=== PATIENT | female | born 1980 | race Caucasian/White ===

== ENCOUNTER 2020-01-12 11:24 | Emergency (ER) | payer SELFPAY ==
[2020-01-12] MEDS ORDERED: FAMOTIDINE 20 MG/2 ML VIAL IV ONE (11:58)
[2020-01-12] MEDS ORDERED: MORPHINE 4 MG/ML SYR ONE ×2 (11:58→14:06)
[2020-01-12] MEDS ORDERED: LIDOCAINE VISCOUS 2% SOLN 15 ML UDC ONE (11:58)
[2020-01-12] MEDS ORDERED: ONDANSETRON 4 MG/2 ML VIAL ONE (11:58)
[2020-01-12] MEDS ORDERED: MAGNE/ALUM HYDROXD 30 ML UCUP ONE (11:58)
[2020-01-12 12:03] LABS: Absolute Lymphocytes (CBC) 1.5 K/uL (0.7-4.9); Basophils % 0.4 % (0-1.3); Hematocrit 40.4 % (36.0-45.0); Lymphocytes % 18.5 % (15.3-44.8); MPV 10.1 fL (7.6-11.3); RBC Red Blood Cell Count 4.35 M/uL (3.86-4.86)
[2020-01-12 12:16] LABS: ALT/SGPT 13 U/L (12-78); AST/SGOT 8 U/L (15-37); Albumin 3.4 g/dL (3.4-5.0); Alkaline Phosphatase 84 U/L (45-117); BUN Blood Urea Nitrogen 12 mg/dL (7-18); Bicarbonate 21 mmol/L (21-32); Bilirubin Direct 0.1 mg/dL (0-0.2); Bilirubin Total 0.4 mg/dL (0.2-1.0); Glucose Level 90 mg/dL (74-106); Lipase 93 U/L (73-393); Potassium 3.8 mmol/L (3.5-5.1); Protein, Total 7.1 g/dL (6.4-8.2); Sodium Level 140 mmol/L (136-145)
--- NOTE | 2020-01-12 14:09 | RAD REPORT ---
EXAM DESCRIPTION: CTAbdomen Pelvis W Contrast - 01/12/2020 1:47 pm CLINICAL HISTORY: Abdominal pain. upper abd pain, vomiting, hx of gastric bypass 8 years ago COMPARISON: No comparisons TECHNIQUE: Biphasic CT imaging of the abdomen and pelvis was performed with 100 ml non-ionic IV cont rast. All CT scans are performed using dose optimization technique as appropriate and may include automated exposure control or mA/KV adjustment according to patient size. FINDINGS: The lung bases are clear.Postsurgical changes are noted about the stomach of a gastric byp ass procedure. The bypassed portion of the stomach shows mild mucosal enhancement and is mildly diste nded with fluid. The liver, spleen, pancreas, adrenal glands and kidneys are within normal limits. Cholecystectomy cli ps. No bowel obstruction, free air, free fluid or abscess. The appendix is normal. No evidence of signi ficant lymphadenopathy. No suspicious bony findings. IMPRESSION: Gastric bypass changes are noted. The bypassed portion of the stomach shows mucosal enha ncement suggesting gastritis or other form of inflammation.
--- NOTE | 2020-01-12 14:29 | EDPHYS ---
Physician Documentation [facility] Name: Chantell Phillips Age: 39 yrs Sex: Female : 1980 Arrival Date: 01/12/2020 Time: 11:28 Bed 17 Private MD: ED Physician Anshu San HPI: 01/11 11:44 This 39 yrs old Female presents to ER via Unassigned with complaints of rn Abdominal Pain. 11:44 The patient presents with abdominal pain in the epigastric area. Onset: The rn symptoms/episode began/occurred yesterday. The symptoms do not radiate. Associated signs and symptoms: Pertinent positives: nausea and vomiting, Pertinent negatives: blood in stools, fever, shortness of breath, vomiting blood. Modifying factors: The symptoms are alleviated by nothing, the symptoms are aggravated by touching the area. Severity of pain: At its worst the pain was moderate in the emergency department the pain is unchanged. The patient has not experienced similar symptoms in the past. Reports 2 days of upper abd pain, assoc with nausea and vomiting, gastric bypass 8 years ago, no fever, no trauma, no blood in stool or dark stool. No chest pain. . 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 - Family history:: not pertinent. - Social history:: Smoking status: Patient denies any tobacco usage or history of. - Hospitalizations: : No recent hospitalization is reported. ROS: 11:44 Constitutional: Negative for fever, chills, and weight loss, Eyes: Negative for injury, rn pain, redness, and discharge, Neck: Negative for injury, pain, and swelling, Cardiovascular: Negative for chest pain, palpitations, and edema, Respiratory: Negative for shortness of breath, cough, wheezing, and pleuritic chest pain, Abdomen/GI: + abd pain/nausea/vomiting Back: Negative for injury and pain, MS/Extremity: Negative for injury and deformity, Skin: Negative for injury, rash, and discoloration, Neuro: Negative for headache, weakness, numbness, tingling, and seizure. Exam: 11:44 Constitutional: This is a well developed, well nourished patient who is awake, alert, rn holding upper abdomen Head/Face: Normocephalic, atraumatic. Cardiovascular: Regular rate and rhythm. No pulse deficits. Respiratory: No increased work of breathing, no retractions or nasal flaring. Abdomen/GI: soft, + epigastric tenderness, no rebound, no masses Skin: Warm, dry MS/ Extremity: Pulses equal, no cyanosis. Neurovascular intact. Full, normal range of motion. Equal circumference. Neuro: Awake and alert, GCS 15 Vital Signs: 11:45 BP 118 / 74; Pulse 78; Resp 18; Temp 99.2(O); Pulse Ox 99% on R/A; Height 5 ft. 7 in. sv (170.18 cm); Pain 7/10; 12:27 BP 138 / 77; Pulse 58; Resp 16 S; Pulse Ox 99% on R/A; ca1 13:30 BP 128 / 64; Pulse 64; Resp 15 S; Pulse Ox 100% on R/A; ca1 14:29 BP 142 / 72; Pulse 60; Resp 15 S; Pulse Ox 100% on R/A; ca1 MDM: 11:32 Patient medically screened. rn 14:27 Differential diagnosis: gastritis, non-specific abd pain, pancreatitis, bowel rn obstruction. Data reviewed: vital signs, nurses notes, lab test result(s), radiologic studies, CT scan, and as a result, I will discharge patient. Counseling: I had a detailed discussion with the patient and/or guardian regarding: the historical points, exam findings, and any diagnostic results supporting the discharge/admit diagnosis, lab results, radiology results, the need for outpatient follow up, to return to the emergency department if symptoms worsen or persist or if there are any questions or concerns that arise at home. Response to treatment: the patient's symptoms have mildly improved after treatment, and as a result, I will discharge patient. Special discussion: Based on the patient's Hx, exam, and Dx evaluation, there is no indication for emergent surgery or inpatient Tx. It is understood by the patient/guardian that if the Sx's persist or worsen they need to return immediately for re-evaluation. I discussed with the patient/guardian in detail that at this point there is no indication for admission to the hospital. It is understood, however, that if the symptoms persist or worsen the patient needs to return immediately for re-evaluation. ED course: CT shows gastritis, normal h/h, normal vitals, patient using phone, seems more comfortable, will dc home with GI f/u and antacids. . 01/11 11:43 Order name: Basic Metabolic Panel; Complete Time: 12:39 rn 01/11 11:43 Order name: CBC with Diff; Complete Time: 12:39 rn 01/11 11:43 Order name: Hepatic Function; Complete Time: 12:39 rn 01/11 11:43 Order name: Lipase; Complete Time: 12:39 rn 01/11 11:43 Order name: CT Abd/Pelvis - PO and IV Contrast; Complete Time: 14:24 rn 01/11 11:43 Order name: IV Saline Lock; Complete Time: 11:54 rn 01/11 11:43 Order name: Labs collected and sent; Complete Time: 11:54 rn Administered Medications: 11:52 Drug: Zofran (Ondansetron) 4 mg Route: IVP; Site: right antecubital; tw2 13:00 Follow up: Response: No adverse reaction; Nausea is decreased ca1 11:54 Drug: morphine 4 mg {Note: RASS 0.} Route: IVP; Site: right antecubital; tw2 13:00 Follow up: Response: No adverse reaction; Pain is decreased; RASS: Alert and Calm (0) ca1 11:58 Drug: GI Cocktail without - (Maalox Suspension 30 ml, Lidocaine Liquid 2 % 15 tw2 ml) Route: PO; 13:00 Follow up: Response: No adverse reaction; Pain is decreased ca1 11:58 Drug: Pepcid 20 mg Route: IVP; Site: right antecubital; tw2 13:00 Follow up: Response: No adverse reaction; Pain is decreased ca1 13:57 Drug: morphine 4 mg {Note: rass 0 .} Route: IVP; Site: right antecubital; ca1 14:40 Follow up: Response: No adverse reaction; Pain is decreased; RASS: Alert and Calm (0) ca1 Disposition: 01/12/20 14:29 Discharged to Home. Impression: Gastritis, unspecified, without bleeding. - Condition is Stable. - Discharge Instructions: Gastritis, Adult. - Prescriptions for Zofran ODT 4 mg Oral tablet,disintegrating - place 1 tablet by TRANSLINGUAL route every 8 hours As needed; 20 tablet. Protonix 40 mg Oral Tablet - take 1 tablet by ORAL route once daily; 30 tablet. Tylenol- Codeine #3 300-30 mg Oral Tablet - take 1 tablet by ORAL route every 6 hours As needed; 15 tablet. - Medication Reconciliation Form, Thank You Letter, Antibiotic Education, Prescription Opioid Use form. - Follow up: Hugo Ramirez MD; When: As needed; Reason: Recheck today's complaints, Re-evaluation by your physician. - Problem is new. - Symptoms have improved. Signatures: Dispatcher [employer] EDMS Martha Montanez RN RN sv Anshu San MD MD rn Wise, Tara, RN RN tw2 Sonia Wong RN RN ca1 Corrections: (The following items were deleted from the chart) 14:48 14:29 01/12/2020 14:29 Discharged to Home. Impression: Gastritis, unspecified, without ca1 bleeding. Condition is Stable. Forms are Medication Reconciliation Form, Thank You Letter, Antibiotic Education, Prescription Opioid Use. Follow up: Hugo Ramirez; When: As needed; Reason: Recheck today's complaints, Re-evaluation by your physician. Problem is new. Symptoms have improved. rn
--- NOTE | 2020-01-12 14:29 | ER ---
Nurse's Notes [facility] Name: Chantell Phillips Age: 39 yrs Sex: Female : 1980 Arrival Date: 01/12/2020 Time: 11:28 Bed 17 Private MD: Diagnosis: Gastritis, unspecified, without bleeding Presentation: 01/11 11:45 Chief complaint: Patient states: epigastric pain and nausea x 2 days. Has been taking sv Tylenol 2 tabs Q4h since last night. Coronavirus screen: Client denies travel out of the [place] in the last 14 days. At this time, the client does not indicate any symptoms associated with coronavirus-19. Ebola Screen: No symptoms or risks identified at this time. Initial Sepsis Screen: Does the patient meet any 2 criteria? No. Patient's initial sepsis screen is negative. Does the patient have a suspected source of infection? No. Patient's initial sepsis screen is negative. Risk Assessment: Do you want to hurt yourself or someone else? Patient reports no desire to harm self or others. Onset of symptoms was January 10, 2020. 11:45 Method Of Arrival: Ambulatory sv 11:45 Acuity: BRENDA 3 sv Triage Assessment: 11:45 General: Appears in no apparent distress. uncomfortable, well developed, Behavior is sv calm, cooperative, appropriate for age. Pain: Complains of pain in epigastric area Pain currently is 7 out of 10 on a pain scale. Pain began 1 day ago. Is intermittent, Noted to be grimacing, with abd palpation. Neuro: Level of Consciousness is awake, alert, obeys commands, Oriented to person, place, time, situation, Moves all extremities. Full function Gait is steady, Speech is normal. Respiratory: Airway is patent Respiratory effort is even, unlabored, Respiratory pattern is regular, symmetrical. GI: Reports epigastric pain, nausea, Patient currently denies vomiting. Derm: Skin is pink, warm \T\ dry. Musculoskeletal: Range of motion: intact in all extremities. 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 - Family history:: not pertinent. - Social history:: Smoking status: Patient denies any tobacco usage or history of. - Hospitalizations: : No recent hospitalization is reported. Screenin:47 Abuse screen: Denies threats or abuse. Denies injuries from another. Abuse screen: sv Denies threats or abuse. Nutritional screening: No deficits noted. Tuberculosis screening: No symptoms or risk factors identified. Fall Risk None identified. Assessment: 12:27 Reassessment: Patient appears in no apparent distress at this time. Patient and/or ca1 family updated on plan of care and expected duration. Pain level reassessed. Patient is alert, oriented x 3, equal unlabored respirations, skin warm/dry/pink. 12:28 GI: ca1 12:53 Reassessment: PO contrast completed. 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 ca1 13:30 Reassessment: Patient appears in no apparent distress at this time. Patient and/or ca1 family updated on plan of care and expected duration. Pain level reassessed. Patient is alert, oriented x 3, equal unlabored respirations, skin warm/dry/pink. 14:29 Reassessment: Patient appears in no apparent distress at this time. Patient and/or ca1 family updated on plan of care and expected duration. Pain level reassessed. Patient is alert, oriented x 3, equal unlabored respirations, skin warm/dry/pink. Vital Signs: 11:45 BP 118 / 74; Pulse 78; Resp 18; Temp 99.2(O); Pulse Ox 99% on R/A; Height 5 ft. 7 in. sv (170.18 cm); Pain 7/10; 12:27 BP 138 / 77; Pulse 58; Resp 16 S; Pulse Ox 99% on R/A; ca1 13:30 BP 128 / 64; Pulse 64; Resp 15 S; Pulse Ox 100% on R/A; ca1 14:29 BP 142 / 72; Pulse 60; Resp 15 S; Pulse Ox 100% on R/A; ca1 ED Course: 11:28 Patient arrived in ED. ds1 11:32 Anshu San MD is Attending Physician. rn 11:45 Martha Montanez RN is Primary Nurse. sv 11:46 Triage completed. sv 11:47 Arm band placed on. sv 11:47 Patient has correct armband on for positive identification. Bed in low position. Call sv light in reach. Pulse ox on. NIBP on. 11:51 Initial lab(s) drawn, by me, sent to lab. Inserted saline lock: 20 gauge in right dh3 antecubital area, using aseptic technique. Blood collected. 12:[address] Scan. sv 13:48 CT Abd/Pelvis - PO and IV Contrast In Process Unspecified. EDMS 14:28 Sonia Wong, RN is Primary Nurse. ca1 14:29 Hugo Ramirez MD is Referral Physician. rn 14:47 No provider procedures requiring assistance completed. IV discontinued, intact, ca1 bleeding controlled, No redness/swelling at site. Pressure dressing applied. Administered Medications: 11:52 Drug: Zofran (Ondansetron) 4 mg Route: IVP; Site: right antecubital; tw2 13:00 Follow up: Response: No adverse reaction; Nausea is decreased ca1 11:54 Drug: morphine 4 mg {Note: RASS 0.} Route: IVP; Site: right antecubital; tw2 13:00 Follow up: Response: No adverse reaction; Pain is decreased; RASS: Alert and Calm (0) ca1 11:58 Drug: GI Cocktail without - (Maalox Suspension 30 ml, Lidocaine Liquid 2 % 15 tw2 ml) Route: PO; 13:00 Follow up: Response: No adverse reaction; Pain is decreased ca1 11:58 Drug: Pepcid 20 mg Route: IVP; Site: right antecubital; tw2 13:00 Follow up: Response: No adverse reaction; Pain is decreased ca1 13:57 Drug: morphine 4 mg {Note: rass 0 .} Route: IVP; Site: right antecubital; ca1 14:40 Follow up: Response: No adverse reaction; Pain is decreased; RASS: Alert and Calm (0) ca1 Outcome: 14:29 Discharge ordered by . rn 14:47 Discharged to home ambulatory. ca1 14:47 Condition: stable 14:47 Discharge instructions given to patient, Instructed on discharge instructions, follow up and referral plans. medication usage, Demonstrated understanding of instructions, follow-up care, medications, Prescriptions given X 3. 14:48 Patient left the ED. ca1 Signatures: Dispatcher [employer] EDMA Martha Montanez RN RN Yanique Hawk ds1 Anshu San MD MD rn Wise, Tara, RN RN tw2 Tanisha Guadarrama 3 Sonia Wong RN RN ca1 Corrections: (The following items were deleted from the chart) 13:58 13:58 Reassessment: Patient appears in no apparent distress at this time. Patient ca1 and/or family updated on plan of care and expected duration. Pain level reassessed. Patient is alert, oriented x 3, equal unlabored respirations, skin warm/dry/pink. ca1
[2020-01-17 01:12] VITALS: TEMP 99.2
[2020-01-17 01:15] VITALS: O2SAT 100
[2020-01-17 01:16] VITALS: BP 142/72
== END 2020-01-12 14:48 | disposition home or self-care (01) ==
LOC: ER 11:24
DX: K29.70 Gastritis, unspecified, without bleeding (principal); Z88.0 Allergy status to penicillin; Z88.5 Allergy status to narcotic agent; Z91.048 Other nonmedicinal substance allergy status; Z98.84 Bariatric surgery status
CPT/HCPCS: 36415; 74177; 80048; 80076; 83690; 85025; 96374; 96375; 99284; J2405; Q9967

== ENCOUNTER 2020-03-01 18:42 | Emergency (ER) | payer SELFPAY ==
[2020-03-01] MEDS ORDERED: HYDROCODONE/APAP 10/325 TAB ONE (19:21)
--- NOTE | 2020-03-01 20:49 | RAD REPORT ---
EXAM DESCRIPTION: RAD - Knee Right 3 View - 03/01/2020 7:57 pm CLINICAL HISTORY: fall, right knee pain COMPARISON: No comparisons FINDINGS: No fracture, dislocation or periosteal reaction.No joint effusion seen. No joint space stephanie rowing. No foreign body or other soft tissue abnormality. Benign sclerotic foci seen in the tibial pl [place]. IMPRESSION: Negative right knee. Clinical concerns for internal derangement or occult bony injury could be further assessed with MR im aging.
--- NOTE | 2020-03-01 20:51 | ER ---
Nurse's Notes [facility] Name: Chantell Phillips Age: 40 yrs Sex: Female : 1980 Arrival Date: 03/01/2020 Time: 18:44 Bed 8 Private MD: Diagnosis: Other internal derangements of right knee Presentation: 03/01 18:54 Chief complaint: Patient states: Fell yesterday, c/o pain and swelling to R knee, ph denies other injury. Coronavirus screen: Client denies travel out of the [place] in the last 14 days. At this time, the client does not indicate any symptoms associated with coronavirus-19. Ebola Screen: No symptoms or risks identified at this time. Initial Sepsis Screen: Does the patient meet any 2 criteria? No. Patient's initial sepsis screen is negative. Does the patient have a suspected source of infection? No. Patient's initial sepsis screen is negative. Risk Assessment: Do you want to hurt yourself or someone else? Patient reports no desire to harm self or others. Onset of symptoms was March 01, 2020. 18:54 Method Of Arrival: Wheelchair ph 18:54 Acuity: BRENDA 4 ph Historical: - Allergies: 18:59 Iodine; ph 18:59 PENICILLINS; ph 18:59 Tylenol-Codeine #3; ph - PSHx: 18:59 Hiatal hernia; Gastric Bypass; Cholecystectomy; Hysterectomy; Umbilical hernia; ph - Immunization history:: Adult Immunizations unknown. - Social history:: Smoking status: Patient reports the use of cigarette tobacco products, smokes one pack cigarettes per day. Screenin:14 Abuse screen: Denies threats or abuse. Denies injuries from another. Nutritional rv screening: No deficits noted. Tuberculosis screening: No symptoms or risk factors identified. Fall Risk None identified. Assessment: 19:11 General: Appears uncomfortable, Behavior is calm, cooperative. Pain: Complains of pain rv in lateral aspect of right knee. Neuro: Level of Consciousness is awake, alert, obeys commands, Oriented to person, place, time, situation. Cardiovascular: Patient's skin is warm and dry. Respiratory: Airway is patent Respiratory effort is even, unlabored, Respiratory pattern is regular, Breath sounds are clear bilaterally. Derm: Skin is pink, warm \T\ dry. Musculoskeletal: Swelling present in lateral aspect of right knee. Vital Signs: 18:54 BP 112 / 76; Pulse 97; Resp 18; Temp 97.8; Pulse Ox 98% on R/A; Height 5 ft. 7 in. ph (170.18 cm); ED Course: 18:44 Patient arrived in ED. ds1 18:51 Aidan Arredondo PA is PHCP. [facility] 18:51 Dk Garcia MD is Attending Physician. [facility] 18:58 Triage completed. ph 18:59 Arm band placed on Patient placed in an exam room, on a stretcher. ph 19:04 Esteban Echeverria, RN is Primary Nurse. rv 19:14 Patient has correct armband on for positive identification. Bed in low position. Call rv light in reach. Adult w/ patient. Pulse ox on. NIBP on. 19:57 Knee Right 3 View XRAY In Process Unspecified. EDMS 20:49 Stan Flores MD is Referral Physician. [facility] Administered Medications: 19:09 Drug: [place] 10 mg-325 mg 1 tabs Route: PO; rv Outcome: 20:50 Discharge ordered by . [facility] 21:12 Patient left the ED. bb Signatures: Dispatcher [employer] EDMS Aidan Arredondo PA PA Yanique Biggs ds1 Lillian Willams, AARON RN bb Fabiola Fry RN RN Esteban Echeverria, AARON RN rv
--- NOTE | 2020-03-01 20:51 | EDPHYS ---
Physician Documentation [facility] Name: Chantell Phillips Age: 40 yrs Sex: Female : 1980 Arrival Date: 03/01/2020 Time: 18:44 Bed 8 Private MD: ED Physician Dk Garcia HPI: 03/01 18:56 This 40 yrs old Female presents to ER via Wheelchair with complaints of R Leg jmm Pain. 18:56 The patient presents with an injury, pain. Onset: The symptoms/episode began/occurred jmm acutely, yesterday. Modifying factors: The symptoms are alleviated by nothing. the symptoms are aggravated by movement, weight bearing. This is a 40 year old female that presents to the ED with complaints of right lateral knee pain beginning yesterday. Patient tripped over an object injuring her right leg. . Historical: - Allergies: 18:59 Iodine; ph 18:59 PENICILLINS; ph 18:59 Tylenol-Codeine #3; ph - PSHx: 18:59 Hiatal hernia; Gastric Bypass; Cholecystectomy; Hysterectomy; Umbilical hernia; ph - Immunization history:: Adult Immunizations unknown. - Social history:: Smoking status: Patient reports the use of cigarette tobacco products, smokes one pack cigarettes per day. ROS: 18:56 Constitutional: Negative for fever, chills, and weight loss, Cardiovascular: Negative jmm for chest pain, palpitations, and edema, Respiratory: Negative for shortness of breath, cough, wheezing, and pleuritic chest pain. 18:56 MS/extremity: Positive for injury or acute deformity, pain. 18:56 All other systems are negative. Exam: 18:56 Constitutional: This is a well developed, well nourished patient who is awake, alert, jmm and in no acute distress. Head/Face: atraumatic. Eyes: EOMI, no conjunctival erythema appreciated ENT: Moist Mucus Membranes Neck: Trachea midline, Supple Chest/axilla: Normal chest wall appearance and motion. Cardiovascular: Regular rate and rhythm. No edema appreciated Respiratory: Normal respirations, no respiratory distress appreciated Abdomen/GI: Non distended, soft Back: Normal ROM Skin: General appearance color normal 18:56 Musculoskeletal/extremity: painful rom noted to the right knee, lateral knee ttp, full dorsalis pulse, compartments are soft, NVI. 18:56 Skin: Appearance: Color: normal in color. 18:56 Neuro: Orientation: is normal, Mentation: is normal, Memory: is normal. 18:56 Psych: Behavior/mood is pleasant, cooperative. Vital Signs: 18:54 BP 112 / 76; Pulse 97; Resp 18; Temp 97.8; Pulse Ox 98% on R/A; Height 5 ft. 7 in. ph (170.18 cm); MDM: 18:56 Patient medically screened. [facility] 20:48 Data reviewed: vital signs, nurses notes. Counseling: I had a detailed discussion with [facility] the patient and/or guardian regarding: the historical points, exam findings, and any diagnostic results supporting the discharge/admit diagnosis, the need for outpatient follow up, to return to the emergency department if symptoms worsen or persist or if there are any questions or concerns that arise at home. ED course: Patient is alert and non toxic in appearance in the ED. I do not appreciated a fracture on plain film. Patient advised to follow up with ortho for further evaluation. Patient understood and agrees with the plan of care. . 03/01 19:00 Order name: Knee Right 3 View XRAY; Complete Time: 20:51 [facility] Administered Medications: 19:09 Drug: [place] 10 mg-325 mg 1 tabs Route: PO; rv Disposition: 03/02 07:27 Co-signature as Attending Physician, Dk Garcia MD I agree with the assessment and kdr plan of care. Disposition: 03/01/20 20:50 Discharged to Home. Impression: Other internal derangements of right knee. - Condition is Stable. - Discharge Instructions: Knee Pain. - Prescriptions for orphenadrine citrate 100 mg Oral Tablet Sustained Release - take 1 tablet by ORAL route 2 times per day As needed; 20 tablet. - Medication Reconciliation Form, Thank You Letter, Antibiotic Education, Prescription Opioid Use form. - Follow up: Stan Flores MD; When: 2 - 3 days; Reason: Recheck today's complaints, Continuance of care, Re-evaluation by your physician. Signatures: Dispatcher [employer] EDMS Dk Garcia MD MD kdr Mickail, Joel, PA PA Lillian Herr RN RN Fabiola Aldana RN RN Esteban Lam RN RN rv Corrections: (The following items were deleted from the chart) 03/01 21:12 20:50 03/01/2020 20:50 Discharged to Home. Impression: Other internal derangements of bb right knee. Condition is Stable. Forms are Medication Reconciliation Form, Thank You Letter, Antibiotic Education, Prescription Opioid Use. Follow up: Dr. Stan Flores; When: 2 - 3 days; Reason: Recheck today's complaints, Continuance of care, Re-evaluation by your physician. shirley
[2020-03-01 21:20] VITALS: BP 112/76; TEMP 97.8; O2SAT 98
== END 2020-03-01 21:12 | disposition home or self-care (01) ==
LOC: ER 18:42
DX: M23.8X1 Other internal derangements of right knee (principal); W22.8XXA Striking against or struck by other objects, initial encounter; Y93.89 Activity, other specified; Y92.9 Unspecified place or not applicable; F17.210 Nicotine dependence, cigarettes, uncomplicated; Z88.0 Allergy status to penicillin; Z88.6 Allergy status to analgesic agent; Z95.1 Presence of aortocoronary bypass graft
CPT/HCPCS: 99283

== ENCOUNTER 2020-06-19 15:12 | Emergency (ER) | payer SELFPAY ==
[2020-06-19] MEDS ORDERED: METHYLPREDNISOLONE 125 MG INJ ONE (15:47)
[2020-06-19] MEDS ORDERED: DIPHENHYDRAMINE 50 MG/ML VIAL ONE (15:48)
[2020-06-19] MEDS ORDERED: FAMOTIDINE 20 MG/2 ML VIAL IV ONE (15:48)
[2020-06-19] MEDS ORDERED: NA CHLORIDE 0.9% 1,000 ML ONE (15:48)
[2020-06-19] MEDS ORDERED: FENTANYL CITR 100 MCG/2 ML ONE (15:48)
[2020-06-19 16:07] LABS: Absolute Lymphocytes (CBC) 2.5 K/uL (0.7-4.9); Basophils % 0.7 % (0-1.3); Hematocrit 36.7 % (36.0-45.0); MPV 10.4 fL (7.6-11.3); RBC Red Blood Cell Count 4.01 M/uL (3.86-4.86)
[2020-06-19 16:18] LABS: BUN Blood Urea Nitrogen 7 mg/dL (7-18); Bicarbonate 23 mmol/L (21-32); Glucose Level 77 mg/dL (74-106); Potassium 3.2 mmol/L (3.5-5.1); Sodium Level 146 mmol/L (136-145)
--- NOTE | 2020-06-19 16:30 | RAD REPORT ---
EXAM DESCRIPTION: CT - Head C Spine Cap W Con - 06/19/2020 4:05 pm CLINICAL HISTORY: fall on stairs;Pain, head, neck, chest and abdomen pain History MS, hiatal hernia, gastric bypass, cholecystectomy, hysterectomy and umbilical hernia COMPARISON: Abdomen Pelvis W Contrast dated 01/12/2020 TECHNIQUE: Axial [address] head images were obtained. Axial [address] cervical spine images were obtaine d with sagittal and coronal reconstruction images reviewed. During dynamic enhancement of 100mL non-i onic contrast, axial 5 mm images of the chest, abdomen and pelvis were obtained. Biphasic technique p erformed of the abdomen and pelvis. All CT scans are performed using dose optimization technique as appropriate and may include automated exposure control or mA/KV adjustment according to patient size. FINDINGS: No intracranial hemorrhage, mass or edema. No midline shift or abnormal fluid collection. Mastoid air cells and paranasal sinuses are clear. No skull fracture. CT cervical spine imaging shows normal height. Normal alignment of the vertebrae. No disc space narro wing present. There is posterior endplate spurring and disc bulge at C5-6 more prominent than typical ly seen at this age. Borderline central spinal stenosis present. No foraminal stenosis. No paraspinal mass or hematoma seen. Central canal detail is inherently limited. Concerns for traumatic disc herni ation or traumatic cord injury can be further addressed with MR imaging. CT chest shows no pneumothorax, pulmonary contusion or pleural fluid collection. No mediastinal hemat jhony and the aorta and pulmonary arteries are unremarkable. No chest will mass or abnormal axillary fi nding. No displaced rib fracture or other significant bony finding. CT abdomen and pelvis show no injury to solid abdominal viscera. Cholecystectomy clips are present. N o biliary tree dilatation. No bowel injury or significant finding. No free air, free fluid or abnorma l stranding. Gastric bypass surgical changes are present without acute component. Stranding in the de ep subcutaneous fatty tissues of the lower abdomen not clearly different from prior imaging. This is probably chronic. A component of contusion or edema would be possible if the patient has localizing s ymptoms. There is no free intraperitoneal fluid. Bony degenerative changes are present. No pelvic fracture changes or acute bone process identifiable. No sacrum or coccyx acute finding. No significant vascular finding. IMPRESSION: No significant CT Head finding. No acute cervical spine finding. Advanced for age C5-6 degenerative disc disease with borderline spin al stenosis. No significant CT Chest finding. No significant CT Abdomen and Pelvis finding. Nonacute findings detailed in the body of the report.
--- NOTE | 2020-06-19 16:49 | ER ---
Nurse's Notes [facility] Name: Chantell Phillips Age: 40 yrs Sex: Female : 1980 Arrival Date: 06/19/2020 Time: 15:13 Bed Hall1 Private MD: Diagnosis: Fall on same level from slipping, tripping and stumbling;Cervicalgia;Dorsalgia;Pain in right hip Presentation: 06/19 15:13 Chief complaint: Patient states: "my slipper got caught and I fell down the stairs (3-4 aa5 steps)". Pt c/o pain to left side of neck and sacral pain. Negative LOC. Coronavirus screen: Client denies travel out of the [place] in the last 14 days. At this time, the client does not indicate any symptoms associated with coronavirus-19. Ebola Screen: Patient negative for fever greater than or equal to 101.5 degrees Fahrenheit, and additional compatible Ebola Virus Disease symptoms. Risk Assessment: Do you want to hurt yourself or someone else? Patient reports no desire to harm self or others. Onset of symptoms was June 19, 2020. Care prior to arrival: Medication(s) given: Toradol 30mg IVP IV initiated. 20 GA, in the right antecubital area. 15:13 Acuity: BRENDA 4 aa5 15:13 Method Of Arrival: EMS: [facility] aa5 15:15 Initial Sepsis Screen: Does the patient meet any 2 criteria? No. Patient's initial aa5 sepsis screen is negative. Does the patient have a suspected source of infection? No. Patient's initial sepsis screen is negative. Historical: - Allergies: 15:15 Iodine; aa5 15:15 PENICILLINS; aa5 15:15 Tylenol-Codeine #3; aa5 - PMHx: 15:15 MS; aa5 - PSHx: 15:15 Hiatal hernia; Gastric Bypass; Cholecystectomy; Hysterectomy; Umbilical hernia; aa5 Screenin:13 Abuse screen: Denies threats or abuse. Nutritional screening: No deficits noted. aa5 Tuberculosis screening: No symptoms or risk factors identified. Fall Risk Fall in past 12 months (25 points). Secondary diagnosis (15 points) MS. IV access (20 points). Total Singleton Fall Scale indicates High Risk Score (45 or more points). Fall prevention measures have been instituted. Side Rails Up X 2 Placed Close to Nursing Station. Assessment: 15:13 General: Appears uncomfortable, Behavior is cooperative, anxious. Pain: Complains of aa5 pain in left side of neck and sacral area Pain currently is 10 out of 10 on a pain scale. Quality of pain is described as sharp, shooting, Pain began post-fall. Neuro: Level of Consciousness is awake, alert, obeys commands, Oriented to person, place, time, situation. Cardiovascular: Patient's skin is warm and dry. Respiratory: Airway is patent Respiratory effort is even, unlabored, Respiratory pattern is regular, symmetrical. GI: No signs and/or symptoms were reported involving the gastrointestinal system. : No signs and/or symptoms were reported regarding the genitourinary system. EENT: No signs and/or symptoms were reported regarding the EENT system. Derm: Skin is pink, warm \\T\\ dry. Musculoskeletal: Reports pain in left side of neck and sacral area. 15:53 Reassessment: Pt to CT via stretcher . aa5 15:53 Reassessment: Patient is alert, oriented x 3, equal unlabored respirations, skin aa5 warm/dry/pink. Pt now calm and states feeling better. . 16:40 Reassessment: Pt screaming "I want to go home now, just give me my paperwork". Pt aa5 appears upset. When asked why is she upset. Pt states "I am just so mad because of what the PA said to me". Pt took out IV by herself, catheter intact and band-aid placed to site. Explained to patient d/c paperwork is not ready at this time. Pt states she will wait on paperwork. Pt was also requesting to speak to MD and explained to pt it will be a few minutes before MD is able to come and speak to her, pt states she no longer wants to speak to MD. Pt not willing to speak anymore and states all she wants is to go home. Pt removed c-collar.. 16:49 Reassessment: MD at bedside speaking to pt at this time. . aa5 Vital Signs: 15:15 BP 146 / 86; Pulse 65; Resp 16 S; Temp 98.2(TE); Pulse Ox 99% on R/A; Pain 10/10; aa5 15:50 BP 143 / 82; Pulse 62; Resp 16 S; Pulse Ox 99% on R/A; aa5 ED Course: 15:13 Patient arrived in ED. aa5 15:13 Arm band placed on Patient placed in an exam room, on a stretcher. aa5 15:13 Patient has correct armband on for positive identification. Bed in low position. Side aa5 rails up X2. 15:15 Triage completed. aa5 15:17 Tom Kapoor PA is PHCP. cp 15:17 Kashif Bradley MD is Attending Physician. cp 15:17 Kayy Hernandez RN is Primary Nurse. aa5 15:45 Initial lab(s) drawn, by me, sent to lab. Maintain EMS IV. Dressing intact. Good blood aa5 return noted. Site clean \\T\\ dry. Gauge \\T\\ site: 20G R AC . 16:05 CT Traumagram (Head C Spine CAP W Con) In Process Unspecified. EDMS 16:40 IV dc'd IV by herself. aa5 Administered Medications: 15:35 Drug: fentaNYL (PF) 25 mcg Route: IVP; Site: right antecubital; aa5 15:53 Follow up: Response: No adverse reaction aa5 15:35 Drug: NS 0.9% 1000 ml Route: IV; Rate: 1 bolus; Site: right antecubital; aa5 15:35 Drug: fentaNYL (PF) 25 mcg Route: IVP; Site: right antecubital; aa5 15:53 Follow up: Response: No adverse reaction aa5 15:35 Drug: Benadryl 25 mg Route: IVP; Site: right antecubital; aa5 15:53 Follow up: Response: No adverse reaction aa5 15:35 Drug: SOLU-Medrol 125 mg Route: IVP; Site: right antecubital; aa5 15:53 Follow up: Response: No adverse reaction aa5 15:35 Drug: Pepcid 20 mg Route: IVP; Site: right antecubital; aa5 15:53 Follow up: Response: No adverse reaction aa5 Outcome: 16:49 Discharge ordered by . cp 17:05 Patient left the ED. aa5 17:05 Condition: Pt was given d/c paperwork by SHERON prior to leaving ER. aa5 17:05 Condition: Pt was noted to walk out of ER with steady gait. aa5 Signatures: Dispatcher [employer] Kayy Weeks RN RN aa5 Tom Kapoor PA PA cp Corrections: (The following items were deleted from the chart) 17:12 17:12 Patient left the ED. aa5 aa5 17:16 15:13 Chief complaint: Patient states: "my slipped got caught and I fell down the aa5 stairs (3-4 steps)". Pt c/o pain to left side of neck and sacral pain. Negative LOC. aa5 19:21 16:40 Reassessment: Pt screaming "I want to go home now, just give me my paperwork". Pt aa5 appears upset. When asked why is she upset. Pt states "I am just so mad because of what the PA said to me". Pt took out IV by herself, catheter intact and band-aid placed to site. Explained to patient d/c paperwork is not ready at this time. Pt states she will wait on paperwork. Pt was also requesting to speak to MD and explained to pt it will be a few minutes before MD is able to come and speak to her, pt states she no longer wants to speak to MD. Pt not willing to speak anymore and states all she wants is to go home. . aa5
--- NOTE | 2020-06-19 16:49 | EDPHYS ---
Physician Documentation [facility] Name: Chantell Phillips Age: 40 yrs Sex: Female : 1980 Arrival Date: 06/19/2020 Time: 15:13 Bed [place] MD: ED Physician Kashif Bradley HPI: 06/19 15:30 This 40 yrs old Female presents to ER via EMS with complaints of Fall Injury. cp 15:30 Details of fall: The patient fell from an upright position, while walking. Onset: The cp symptoms/episode began/occurred just prior to arrival. Associated injuries: The patient sustained neck injury, pain, pain with movement, upper back injury, pain, pain with movement, injury to the low back, pain, pain with movement, right hip pain. Patient reports she was walking outside apartment and about to descend down concrete stairs when she lost her balance because slipper got caught on edge of stair. This caused her to fall backward and land on back. Patient reports striking head w/o LOC and having back and coccyx pain. Historical: - Allergies: 15:15 Iodine; aa5 15:15 PENICILLINS; aa5 15:15 Tylenol-Codeine #3; aa5 - PMHx: 15:15 MS; aa5 - PSHx: 15:15 Hiatal hernia; Gastric Bypass; Cholecystectomy; Hysterectomy; Umbilical hernia; aa5 ROS: 15:35 Constitutional: Negative for body aches, chills, fever, poor PO intake. cp 15:35 Neck: Positive for pain with movement, pain at rest. cp 15:35 Cardiovascular: Negative for chest pain, edema, palpitations. 15:35 Respiratory: Negative for cough, shortness of breath, wheezing. 15:35 Abdomen/GI: Negative for abdominal pain, nausea, vomiting, and diarrhea. 15:35 Back: Positive for pain at rest, pain with movement. 15:35 MS/extremity: Positive for pain, of the right hip, Negative for deformity, paresthesias. 15:35 Neuro: Negative for altered mental status, dizziness, headache, loss of consciousness, syncope, weakness. 15:35 All other systems are negative. Exam: 15:40 Constitutional: The patient appears in no acute distress, alert, awake, non-toxic, well cp developed, well nourished. 15:40 Head/Face: Normocephalic, atraumatic. cp 15:40 Eyes: Periorbital structures: appear normal, Pupils: equal, round, and reactive to light and accomodation, Extraocular movements: intact throughout, Conjunctiva: normal, no exudate, no injection, Sclera: no appreciated abnormality, Lids and lashes: appear normal, bilaterally. 15:40 ENT: External ear(s): are unremarkable, Nose: is normal, Mouth: Lips: moist, Oral mucosa: moist, Posterior pharynx: Airway: no evidence of obstruction, patent. 15:40 Neck: C-spine: C-collar placed [employer]. 15:40 Chest/axilla: Inspection: normal, Palpation: crepitus, is not appreciated, tenderness, that is moderate, of the right lower lateral chest wall. 15:40 Cardiovascular: Rate: normal, Rhythm: regular, JVD: is not appreciated. cp 15:40 Respiratory: the patient does not display signs of respiratory distress, Respirations: cp normal, no use of accessory muscles, no retractions, labored breathing, is not present, Breath sounds: are clear throughout, no decreased breath sounds, no stridor, no wheezing. 15:40 Abdomen/GI: Inspection: abdomen appears normal, Palpation: soft, in all quadrants, moderate abdominal tenderness, in the posterior aspect of right lateral abdomen and anterior aspect of right lateral abdomen, rebound tenderness, is not appreciated, involuntary guarding, is not appreciated. 15:40 Back: pain, that is moderate, of the thoracic area and lumbar area, ROM is painful. 15:40 Musculoskeletal/extremity: Exam is negative for decreased range of motion, deformity. cp 15:40 Neuro: Orientation: to person, place \T\ time. Mentation: is normal, Motor: moves all fours, strength is normal, Sensation: is normal. Vital Signs: 15:15 BP 146 / 86; Pulse 65; Resp 16 S; Temp 98.2(TE); Pulse Ox 99% on R/A; Pain 10/10; aa5 15:50 BP 143 / 82; Pulse 62; Resp 16 S; Pulse Ox 99% on R/A; aa5 MDM: 15:24 Patient medically screened. cp 15:30 Differential diagnosis: closed head injury, contusion, fracture, multiple trauma, cp sprain. 16:35 Data reviewed: vital signs, nurses notes, lab test result(s), radiologic studies, CT cp scan, I have discussed the patient's presentation/case with the attending Emergency Department Physician; and as a result, I will discharge patient. 16:35 Counseling: I had a detailed discussion with the patient and/or guardian regarding: the cp historical points, exam findings, and any diagnostic results supporting the discharge/admit diagnosis, lab results, radiology results. ED course: Attempt to discuss results of labs and radiology studies that were negative for acute trauma but patient became upset and requested to speck with physician. Patient insisting on continuing to wear c-collar after CT head and c-spine results negative for acute trauma. 06/19 15:22 Order name: Basic Metabolic Panel cp 06/19 15:22 Order name: CBC with Diff cp 06/19 15:22 Order name: CT Traumagram (Head C Spine CAP W Con); Complete Time: 16:32 cp 06/19 15:23 Order name: Basic Metabolic Panel; Complete Time: 16:32 EDMS 06/19 16:33 Interpretation: Normal except: NA 146; K 3.2; CL 116; CRE 0.42; CA 8.3. cp 06/19 15:23 Order name: CBC with Automated Diff; Complete Time: 16:32 EDMS 06/19 15:22 Order name: Labs collected and sent; Complete Time: 15:53 cp Administered Medications: 15:35 Drug: fentaNYL (PF) 25 mcg Route: IVP; Site: right antecubital; aa5 15:53 Follow up: Response: No adverse reaction aa5 15:35 Drug: NS 0.9% 1000 ml Route: IV; Rate: 1 bolus; Site: right antecubital; aa5 15:35 Drug: fentaNYL (PF) 25 mcg Route: IVP; Site: right antecubital; aa5 15:53 Follow up: Response: No adverse reaction aa5 15:35 Drug: Benadryl 25 mg Route: IVP; Site: right antecubital; aa5 15:53 Follow up: Response: No adverse reaction aa5 15:35 Drug: SOLU-Medrol 125 mg Route: IVP; Site: right antecubital; aa5 15:53 Follow up: Response: No adverse reaction aa5 15:35 Drug: Pepcid 20 mg Route: IVP; Site: right antecubital; aa5 15:53 Follow up: Response: No adverse reaction aa5 Disposition: 17:20 Chart complete. cp 18:23 Co-signature as Attending Physician, Kashif Bradley MD. ma2 Disposition: 06/19/20 16:49 Discharged to Home. Impression: Fall on same level from slipping, tripping and stumbling, Cervicalgia, Dorsalgia, Pain in right hip. - Condition is Stable. - Discharge Instructions: Back Pain, Adult, Hip Pain, Neck Exercises, Back Exercises. - Prescriptions for Cyclobenzaprine 10 mg Oral Tablet - take 1 tablet by ORAL route every 8 hours As needed; 20 tablet. Diclofenac Sodium 75 mg Oral Tablet, Delayed Release (E.C.) - take 1 tablet by ORAL route 2 times per day; 20 tablet. - Medication Reconciliation Form, Thank You Letter, Antibiotic Education, Prescription Opioid Use form. - Follow up: Private Physician; When: 1 - 2 days; Reason: Recheck today's complaints. - Problem is new. - Symptoms have improved. Signatures: Dispatcher [employer] EDKayy Martinez RN RN aa5 Tom Kapoor PA PA cp Alzahri, Mohammad, MD MD ma2 Corrections: (The following items were deleted from the chart) 16:33 16:33 Normal except: NA 146; K 3.2; CL 116; CRE 0.42. cp cp 17:12 16:49 06/19/2020 16:49 Discharged to Home. Impression: Fall on same level from aa5 slipping, tripping and stumbling; Cervicalgia; Dorsalgia; Pain in right hip. Condition is Stable. Forms are Medication Reconciliation Form, Thank You Letter, Antibiotic Education, Prescription Opioid Use. Follow up: Private Physician; When: 1 - 2 days; Reason: Recheck today's complaints. Problem is new. Symptoms have improved. cp 17:28 15:40 Chest/axilla: Inspection: normal, Palpation: is normal, no crepitus, no cp tenderness, cp
[2020-06-19 17:23] VITALS: BP 146/86; TEMP 98.2; O2SAT 99
== END 2020-06-19 17:12 | disposition home or self-care (01) ==
LOC: ER 15:12
DX: M54.2 Cervicalgia (principal); M54.9 Dorsalgia, unspecified; M25.551 Pain in right hip; W10.9XXA Fall (on) (from) unspecified stairs and steps, initial encounter; K44.9 Diaphragmatic hernia without obstruction or gangrene; Z98.84 Bariatric surgery status; G35 Multiple sclerosis; Y92.038 Other place in apartment as the place of occurrence of the external cause
CPT/HCPCS: 36415; 70450; 71260; 72125; 74177; 80048; 82565; 85025; 96374; 96375; 99284; J1200; J2930; J3010; J7030; Q9967

== ENCOUNTER 2020-08-29 08:15 | Emergency (ER) | payer SELFPAY ==
[2020-08-29 09:35] LABS: Urine Blood Negative (Negative); Urine Glucose Negative (Negative); Urine Protein 1+ (Negative); Urine Specific Gravity >=1.030 (1.005-1.030)
[2020-08-29 09:40] LABS: Absolute Lymphocytes (CBC) 2.3 K/uL (0.7-4.9); Basophils % 0.6 % (0-1.3); Hematocrit 42.3 % (36.0-45.0); MPV 10.2 fL (7.6-11.3); RBC Red Blood Cell Count 4.54 M/uL (3.86-4.86)
[2020-08-29 09:42] LABS: BUN Blood Urea Nitrogen 5 mg/dL (7-18); Bicarbonate 21 mmol/L (21-32); Glucose Level 77 mg/dL (74-106); Sodium Level 139 mmol/L (136-145)
[2020-08-29 09:43] LABS: Potassium 2.7 mmol/L (3.5-5.1)
[2020-08-29] MEDS ORDERED: METHYLPREDNISOLONE 125 MG INJ ONE (09:43)
[2020-08-29] MEDS ORDERED: SERTRALINE HCL 50 MG TAB PO ONE (09:45)
[2020-08-29] MEDS ORDERED: POTASSIUM CL SA 10 MEQ TAB PO ONE (10:08)
[2020-08-29] MEDS ORDERED: NA CHLORIDE 0.9% 1,000 ML ONE (10:08)
[2020-08-29] MEDS ORDERED: KCL 20 MEQ/100 mL IVPB 20 MEQ/100 ML BAG IV ONE (10:08)
[2020-08-29 10:23] LABS: Urine Specific Gravity/Preg >1.030 (1.005-1.030)
--- NOTE | 2020-08-29 10:30 | RAD REPORT ---
EXAM DESCRIPTION: CT - Abdomen Pelvis W Contrast - 08/29/2020 9:56 am CLINICAL HISTORY: ABD PAIN, nausea, vomiting, history of hiatal hernia gastric bypass, cholecystecto my and hysterectomy COMPARISON: Abdomen Pelvis W Contrast dated 01/12/2020 TECHNIQUE: Biphasic, helical CT imaging of the abdomen and pelvis was performed following 100 ml non -ionic IV contrast. No oral contrast administered. All CT scans are performed using dose optimization technique as appropriate and may include automated exposure control or mA/KV adjustment according to patient size. FINDINGS: No suspicious findings in the lung bases. The liver, spleen, and pancreas show no suspicious findings. Cholecystectomy clips are present. Fulln ess of the extrahepatic biliary tree is not outside of normal for post cholecystectomy status. Appear ance is similar to 2020 comparison. Symmetric renal function is seen with no hydronephrosis or suspicious renal mass. No pyelonephritis o r acute parenchymal process. No bladder abnormalities. No adrenal abnormalities. Uterus is absent. Sm all right ovary is identified without solid or cystic mass. Left ovary is more prominent in size at 3 .3 cm. Small left ovarian cysts are present. No overall change in size since the 2019 study. Gastric surgical changes are noted. No abnormal gastric wall thickening or edema identifiable. The hernandes rgical changes distort the normal contour of the stomach. There is no distention or abnormal fluid re tention within the stomach. Mucosal level gastritis is possible but no significant gastric finding ev ident. Small bowel loops are not dilated. No colon dilatation seen. There is moderate stool filling t he distal sigmoid colon and rectum. A discrete mass or acute finding is not identifiable. No free air, free fluid or pneumatosis. No focal inflammatory stranding. Patient does appear to have a mild fluid retention in the subcutaneous fatty tissues compared to the prior study. No hernia, ma ss or bulky lymphadenopathy. No suspicious bony findings. Degenerative changes are present. IMPRESSION: No obstruction, free air or surgically emergent finding identifiable. Gastric surgical changes are noted with no gastric distention, mass or wall thickening identifiable. The postsurgical changes greatly distort the usual contour of the stomach. No acute large or small bowel finding. No acute finding. Uterus is absent. The prominent left ovary with cyst cluster is not clearly different from the 2020 c omparison. Fluid retention is evident in the subcutaneous fatty tissues without ascites identifiable.
[2020-08-29 11:49] LABS: Barbiturates NEGATIVE (NEGATIVE); Benzodiazepines NEGATIVE (NEGATIVE); Cocaine NEGATIVE (NEGATIVE); METHAMPHETAM NEGATIVE (NEGATIVE); Methadone NEGATIVE (NEGATIVE); Opiates NEGATIVE (NEGATIVE); Phencyclidine NEGATIVE (NEGATIVE); THC Cannibis POSITIVE (NEGATIVE)
--- NOTE | 2020-08-29 12:12 | ER ---
Nurse's Notes [facility] Name: Chantell Phillips Age: 40 yrs Sex: Female : 1980 Arrival Date: 08/29/2020 Time: 08:22 Bed 7 Private MD: Diagnosis: Multiple sclerosis;Adjustment disorder with mixed anxiety and depressed mood Presentation: 08/29 08:40 Chief complaint: Patient states: Hazy vision, L arm numbness and N/V that began 4 days ss ago. Pt believes that she is having an MS flare up. Pt states that she has been out of her MS medication for 9 months. Coronavirus screen: Client denies travel out of the [place] in the last 14 days. Ebola Screen: Patient denies exposure to infectious person. Patient denies travel to an Ebola-affected area in the 21 days before illness onset. Initial Sepsis Screen: Does the patient meet any 2 criteria? No. Patient's initial sepsis screen is negative. Does the patient have a suspected source of infection? No. Patient's initial sepsis screen is negative. Risk Assessment: Do you want to hurt yourself or someone else? Patient reports no desire to harm self or others. Onset of symptoms was August 25, 2020. 08:40 Method Of Arrival: Ambulatory ss 08:40 Acuity: BRENDA 3 ss Historical: - Allergies: 08:44 Iodine; ss 08:44 PENICILLINS; ss 08:44 Tylenol-Codeine #3; ss 08:44 Latex, Natural Rubber; ss 08:44 Codeine; ss - PMHx: 08:44 MS; CRPS; ss - PSHx: 08:44 Hiatal hernia; Gastric Bypass; Cholecystectomy; Hysterectomy; Umbilical hernia; ss - Immunization history:: Adult Immunizations up to date. - Social history:: Smoking status: Patient reports the use of cigarette tobacco products, smokes one pack cigarettes per day. Screenin:19 Abuse screen: Denies threats or abuse. Denies injuries from another. Nutritional iw screening: No deficits noted. Tuberculosis screening: No symptoms or risk factors identified. Fall Risk None identified. IV access (20 points). Assessment: 09:18 General: Appears in no apparent distress. Behavior is cooperative, anxious. General:. iw Pain: Denies pain. Neuro: Level of Consciousness is awake, alert, obeys commands, Oriented to person, place, time, situation. Neuro: Reports weakness in right leg and left leg. Cardiovascular: Patient's skin is warm and dry. Respiratory: Airway is patent Respiratory effort is even, unlabored, Respiratory pattern is regular, symmetrical. GI: Reports nausea, vomiting. Derm: Skin is intact, is healthy with good turgor. Musculoskeletal: Range of motion: intact in all extremities. 10:08 Reassessment: Patient appears in no apparent distress at this time. pt states she feels iw like her torso is in a vice manager content, feels like she is being squeezed , asking for pain medication, Dr. Garcia notified. 11:15 Reassessment: Patient appears in no apparent distress at this time. Patient and/or iw family updated on plan of care and expected duration. Pain level reassessed. Patient is alert, oriented x 3, equal unlabored respirations, skin warm/dry/pink. Patient states feeling better. Patient states symptoms have improved. 11:40 Reassessment: pt states she wants the potassium drip d/c, wants IV out. iw 11:59 Reassessment: pt at nurse's station demanding her paper work, I advised pt that there iw is no paperwork yet, pt agitated, refusing to get back in room , pt now talking loudly, demanding to speak to doctor, called Dr. Garcia, will put in for d.c. 12:04 Reassessment: Dr. Garcia at bedside. iw 12:19 Reassessment: Patient appears in no apparent distress at this time. Patient and/or ss family updated on plan of care and expected duration. Pain level reassessed. Patient states feeling better. Patient states symptoms have improved. Vital Signs: 08:40 BP 151 / 67; Pulse 83; Resp 18; Temp 98.0(TE); Pulse Ox 98% on R/A; Height 5 ft. 7 in. ss (170.18 cm); Pain 7/10; ED Course: 08:22 Patient arrived in ED. ds1 08:43 Triage completed. ss 08:44 Arm band placed on right wrist. ss 08:47 Dk Garcia MD is Attending Physician. kdr 09:04 Leonela Laboy RN is Primary Nurse. iw 09:22 Initial lab(s) drawn, by me, sent to lab. Inserted saline lock: 20 gauge in right iw antecubital area, using aseptic technique. Blood collected. 09:56 CT Abd/Pelvis - IV Contrast Only In Process Unspecified. EDMS 12:08 Fernando Marquis MD is Referral Physician. kdr 12:18 No provider procedures requiring assistance completed. IV discontinued, intact, ss bleeding controlled, No redness/swelling at site. Pressure dressing applied. Administered Medications: 09:45 Drug: MethylPrednisoLONE 125 mg Route: IVP; Site: right antecubital; iw 10:45 Follow up: Response: No adverse reaction iw 10:07 Drug: Zoloft 12.5 mg Route: PO; iw 11:00 Follow up: Response: No adverse reaction iw 10:07 Drug: Potassium Chloride 40 mEq Route: PO; iw 10:30 Follow up: Response: No adverse reaction iw 10:07 Drug: Potassium Chloride 20 mEq Route: IV; Rate: calculated rate; Site: right iw antecubital; Outcome: 12:11 Discharge ordered by MD. kdr 12:18 Discharged to home ambulatory, with significant other. ss 12:18 Condition: good 12:18 Discharge instructions given to patient, family, Instructed on discharge instructions, follow up and referral plans. medication usage, Demonstrated understanding of instructions, follow-up care, Prescriptions given X 1. 12:19 Patient left the ED. ss Signatures: Dispatcher [employer] EDCT Dk Garcia MD MD [facility] [place] ds1 Leonela Laboy, AARON RN Ashwini Zuniga RN RN ss Corrections: (The following items were deleted from the chart) 08:44 08:40 Chief complaint: Patient states: Hazy vision, L arm numbness and N/V that began 4 ss days ago. Pt believes that she is having an MS flare up. ss
--- NOTE | 2020-08-29 12:12 | EDPHYS ---
Physician Documentation [facility] Name: Chantell Phillips Age: 40 yrs Sex: Female : 1980 Arrival Date: 08/29/2020 Time: 08:22 Bed 7 Private MD: ED Physician Dk Garcia Historical: - Allergies: 08/29 08:44 Iodine; ss 08:44 PENICILLINS; ss 08:44 Tylenol-Codeine #3; ss 08:44 Latex, Natural Rubber; ss 08:44 Codeine; ss - PMHx: 08:44 MS; CRPS; ss - PSHx: 08:44 Hiatal hernia; Gastric Bypass; Cholecystectomy; Hysterectomy; Umbilical hernia; ss - Immunization history:: Adult Immunizations up to date. - Social history:: Smoking status: Patient reports the use of cigarette tobacco products, smokes one pack cigarettes per day. Vital Signs: 08:40 BP 151 / 67; Pulse 83; Resp 18; Temp 98.0(TE); Pulse Ox 98% on R/A; Height 5 ft. 7 in. ss (170.18 cm); Pain 7/10; MDM: 12:11 Patient medically screened. kdr 08/29 09:06 Order name: CBC with Diff; Complete Time: 11:42 kdr 08/29 09:06 Order name: Chem 7; Complete Time: 11:42 kdr 08/29 09:06 Order name: UDS; Complete Time: 11:57 kdr 08/29 09:06 Order name: ETOH Level; Complete Time: 11:42 kdr 08/29 09:34 Order name: Urine --Ancillary (enter results); Complete Time: 11:42 bd 08/29 09:35 Order name: Urine Dipstick-Ancillary; Complete Time: 11:42 EDMS 08/29 09:06 Order name: CT Abd/Pelvis - IV Contrast Only; Complete Time: 11:42 kdr 08/29 09:06 Order name: Urine Dipstick-Ancillary (obtain specimen); Complete Time: 09:42 kdr Administered Medications: 09:45 Drug: MethylPrednisoLONE 125 mg Route: IVP; Site: right antecubital; iw 10:45 Follow up: Response: No adverse reaction iw 10:07 Drug: Zoloft 12.5 mg Route: PO; iw 11:00 Follow up: Response: No adverse reaction iw 10:07 Drug: Potassium Chloride 40 mEq Route: PO; iw 10:30 Follow up: Response: No adverse reaction iw 10:07 Drug: Potassium Chloride 20 mEq Route: IV; Rate: calculated rate; Site: right iw antecubital; Disposition: 08/29/20 12:11 Discharged to Home. Impression: Multiple sclerosis, Adjustment disorder with mixed anxiety and depressed mood. - Condition is Stable. - Discharge Instructions: Multiple Sclerosis, Major Depressive Disorder, [id number]. - Prescriptions for Zoloft 50 mg Oral Tablet - take 1 tablet by ORAL route once daily Start with one tablet per day for the first week then can increase to twice a day if needed; 10 tablet. - Medication Reconciliation Form, Thank You Letter form. - Follow up: Private Physician; When: 2 - 3 days; Reason: If symptoms return, Further diagnostic work-up, Recheck today's complaints, Continuance of care, Re-evaluation by your physician. Follow up: Fernando Marquis MD; When: 2 - 3 days; Reason: If symptoms return, Further diagnostic work-up, Recheck today's complaints, Continuance of care, Re-evaluation by your physician. - Problem is an acute exacerbation. - Symptoms have improved. Addendum: 08/30/2020 12:21 Addendum: CC: MS Flare/visual disturbance and out of Zoloft for 9 months. HPI: The marvin moise patient states that she has been out of her medications for about 9 months and is new to the area and has no doctor. Now c/o worse visual disturbance for the last two days. Addendum: ROS: Other than the visual disturbance, mild intermittent double vision, she . 13:15 Addendum: ROS (cont) 10 system ROS all negative except for visual disturbance. marvin moise Addendum: EXAM: WDWN WF appears manic. HEENT: WNL, Chest: no injury, Lungs: CTAB, Abd: soft, NT, BS normal , Exter: FROM: Neuro: A\T\Ox3 no focal or generalized deficits, vision appears to be normal, . Addendum: MDM: The patient was stable in the ED and improed with the interventions given. SHE was happy with the care provided and the plan for discharge and follow-up. Signatures: Dispatcher [employer] EDMS Dk Garcia MD MD kdr Leonela Laboy, AARON RN iw Ashwini Zuniga RN RN ss Corrections: (The following items were deleted from the chart) 08/29 12:19 12:11 08/29/2020 12:11 Discharged to Home. Impression: Multiple sclerosis; Adjustment ss disorder with mixed anxiety and depressed mood. Condition is Stable. Forms are Medication Reconciliation Form, Thank You Letter, Antibiotic Education, Prescription Opioid Use. Follow up: Private Physician; When: 2 - 3 days; Reason: If symptoms return, Further diagnostic work-up, Recheck today's complaints, Continuance of care, Re-evaluation by your physician. Follow up: Fernando Marquis; When: 2 - 3 days; Reason: If symptoms return, Further diagnostic work-up, Recheck today's complaints, Continuance of care, Re-evaluation by your physician. Problem is an acute exacerbation. Symptoms have improved. kdr
[2020-08-29 12:28] VITALS: BP 151/67; TEMP 98; O2SAT 98
== END 2020-08-29 12:19 | disposition home or self-care (01) ==
LOC: ER 08:15
DX: G35 Multiple sclerosis (principal); F43.23 Adjustment disorder with mixed anxiety and depressed mood; F17.210 Nicotine dependence, cigarettes, uncomplicated; Z88.0 Allergy status to penicillin; Z88.5 Allergy status to narcotic agent; Z88.8 Allergy status to other drugs, medicaments and biological substances; Z91.040 Latex allergy status; Z91.048 Other nonmedicinal substance allergy status
CPT/HCPCS: 36415; 74177; 80048; 80307; 80320; 81003; 81025; 85025; 96374; 96375; 99284; J2930; J3480; J7030; Q9967